=== PATIENT | female | born 1950 | race Two or more races ===

== ENCOUNTER → 2016-05-12 | Outpatient (REF) | payer BC | LOC: M SFHCLERA 19:32 | PROVIDERS: ATTEND Nurse Practitioner Family | DX: R50.9 Fever, unspecified (principal) ==

== ENCOUNTER → 2018-09-14 | Outpatient (CLI) | payer BC ==
[2018-09-14 18:00] LABS: HEMATOCRIT 42.7 % (36.0-47.0); HEMOGLOBIN 13.7 g/dl (12.0-15.5); MEAN CORPUSCULAR HGB CONC 32.1 g/dl (32.0-36.5); MEAN CORPUSCULAR VOLUME 90.5 fl (80.0-96.0); PLATELET COUNT, AUTOMATED 255 10^3/uL (150-450); RED BLOOD COUNT 4.72 10^6/uL (4.00-5.40); WHITE BLOOD COUNT 5.7 10^3/uL (4.0-10.0)
[2018-09-14 18:11] LABS: ALBUMIN 3.9 GM/DL (3.2-5.2); ALT/SGPT 38 U/L (12-78); BILIRUBIN,TOTAL 0.5 MG/DL (0.2-1.0); BLOOD UREA NITROGEN 18 MG/DL (7-18); CARBON DIOXIDE LEVEL 28 MEQ/L (21-32); CHLORIDE LEVEL 108 MEQ/L (98-107); CREATININE FOR GFR 0.92 MG/DL (0.55-1.30); GLOMERULAR FILTRATION RATE > 60.0 (>45); GLUCOSE, FASTING 97 MG/DL (70-100); SODIUM LEVEL 142 MEQ/L (136-145); TOTAL PROTEIN 7.1 GM/DL (6.4-8.2)
== END ==
LOC: M WUC 08:05
PROVIDERS: ATTEND Family Medicine
DX: E66.9 Obesity, unspecified (principal)

== ENCOUNTER 2019-11-03 12:31 | Inpatient (IN) | payer MEDICARE, BC ==
[2019-11-03] MEDS ORDERED: MORPHINE 4 MG/ML 1ML VIAL/SYRINGE (J2270) As Ordered ONE (14:47)
[2019-11-03] MEDS ORDERED: ONDANSETRON 4MG/2ML VIAL As Ordered ONE (14:47)
[2019-11-03] MEDS ORDERED: ZOSYN 4.5GM VIAL (J2543) As Ordered ONE (15:04)
[2019-11-03] MEDS ORDERED: PROHANCE 279.3MG/ML 5ML VIAL ONE ×2 (17:20→17:38)
[2019-11-03] MEDS ORDERED: PROHANCE 279.3MG/ML 15ML VIAL ONE ×2 (17:20→17:38)
[2019-11-03] MEDS ORDERED: KETOROLAC 30 MG/ML 1ML VIAL As Ordered ONE (22:18)
[2019-11-03] MEDS ORDERED: PANTOPRAZOLE 40MG VIAL (C9113 PER 1) As Ordered ONE (22:18)
[2019-11-03] MEDS ORDERED: ZOSYN 3.375GM VIAL (J2543) As Ordered ONE (23:14)
[2019-11-04] MEDS ORDERED: ZOSYN 3.375GM VIAL (J2543) As Ordered ONE ×3 (04:13→20:40)
[2019-11-04] MEDS ORDERED: KETOROLAC 30 MG/ML 1ML VIAL As Ordered ONE ×4 (04:14→20:41)
[2019-11-04] MEDS ORDERED: PANTOPRAZOLE 40MG VIAL (C9113 PER 1) As Ordered ONE ×2 (08:10→20:40)
[2019-11-04] MEDS ORDERED: SIMETHICONE 80 MG CHEW TAB As Ordered ONE ×2 (14:21→20:41)
[2019-11-05] MEDS ORDERED: KETOROLAC 30 MG/ML 1ML VIAL As Ordered ONE ×3 (02:42→15:49)
[2019-11-05] MEDS ORDERED: ZOSYN 3.375GM VIAL (J2543) As Ordered ONE ×3 (02:42→15:49)
[2019-11-05] MEDS ORDERED: PANTOPRAZOLE 40MG VIAL (C9113 PER 1) As Ordered ONE ×2 (09:38→09:40)
[2019-11-05] MEDS ORDERED: SIMETHICONE 80 MG CHEW TAB As Ordered ONE ×2 (09:40→13:01)
--- NOTE | 2019-12-18 10:56 | ECGEPIP ---
SINUS RHYTHM MARKED LEFT AXIS DEVIATION VOLTAGE CRITERIA FOR LVH ABNORMAL ECG NO OLD AVAILABLE SEE SCANNED DOWNTIME REPORT MTDD
[2020-01-03 08:45] LABS: HEMOGLOBIN 12.2 g/dl (12.0-15.5); MEAN CORPUSCULAR VOLUME 91.1 fl (80.0-96.0); PLATELET COUNT, AUTOMATED 205 10^3/uL (150-450); RED BLOOD COUNT 4.06 10^6/uL (4.00-5.40); WHITE BLOOD COUNT 9.6 10^3/uL (4.0-10.0)
[2020-01-11 15:13] LABS: HEMATOCRIT 39.6 % (36.0-47.0); HEMOGLOBIN 13.3 g/dl (12.0-15.5); MEAN CORPUSCULAR HEMOGLOBIN 29.9 pg (27.0-33.0); MEAN CORPUSCULAR HGB CONC 33.6 g/dl (32.0-36.5); PLATELET COUNT, AUTOMATED 199 10^3/uL (150-450); RED BLOOD COUNT 4.45 10^6/uL (4.00-5.40); WHITE BLOOD COUNT 14.3 10^3/uL (4.0-10.0)
[2020-01-18 20:32] LABS: ALBUMIN 2.8 GM/DL (3.2-5.2); BILIRUBIN,TOTAL 1.3 MG/DL (0.2-1.0); CALCIUM LEVEL 8.3 MG/DL (8.8-10.2); CREATININE FOR GFR 1.1 MG/DL (0.55-1.30); GLOMERULAR FILTRATION RATE 52.6 (>45); POTASSIUM SERUM 3.8 MEQ/L (3.5-5.1); TOTAL PROTEIN 6.1 GM/DL (6.4-8.2)
[2020-01-28 16:09] LABS: ALBUMIN 2.6 GM/DL (3.2-5.2); BILIRUBIN,TOTAL 0.9 MG/DL (0.2-1.0); CALCIUM LEVEL 7.9 MG/DL (8.8-10.2); CREATININE FOR GFR 1.01 MG/DL (0.55-1.30); POTASSIUM SERUM 3.7 MEQ/L (3.5-5.1)
== END 2019-11-05 16:38 | disposition home or self-care (01) | DRG 445 ==
LOC: M ED 12:31 → M MS5PR 11-04 17:40
PROVIDERS: ADMIT Surgery; ATTEND Surgery
DX: K81.0 Acute cholecystitis (principal); K86.2 Cyst of pancreas; N28.1 Cyst of kidney, acquired

== ENCOUNTER → 2019-11-03 | Outpatient (CLI) | payer BC ==
[~2019-11-03] MED LIST: PROHANCE 279.3MG/ML 15ML VIAL ONE; PROHANCE 279.3MG/ML 5ML VIAL ONE
== END ==
LOC: M RAD 10:35
PROVIDERS: ATTEND Physician Assistant
DX: K82.8 Other specified diseases of gallbladder (principal); K83.8 Other specified diseases of biliary tract; K76.0 Fatty (change of) liver, not elsewhere classified

== ENCOUNTER → 2019-11-03 | Outpatient (REF) | payer BC ==
[2019-12-01 00:51] LABS: BASO # 0.1 10^3/uL (0.0-0.2); BASO % 0.3 % (0.0-1.0); EOS % 0.2 % (0.0-3.0); HEMATOCRIT 47.7 % (36.0-47.0); HEMOGLOBIN 15.7 g/dl (12.0-15.5); LYMPH % 4.9 % (24.0-44.0); MEAN CORPUSCULAR HEMOGLOBIN 29.9 pg (27.0-33.0); MEAN CORPUSCULAR HGB CONC 32.9 g/dl (32.0-36.5); MEAN CORPUSCULAR VOLUME 90.9 fl (80.0-96.0); MONO # 1.4 10^3/uL (0.0-0.8); MONO % 6.8 % (0.0-5.0); NEUTROPHILS # 17.4 10^3/uL (1.5-8.5); NEUTROPHILS % 87.2 % (36.0-66.0); PLATELET COUNT, AUTOMATED 268 10^3/uL (150-450); RED BLOOD COUNT 5.25 10^6/uL (4.00-5.40)
[2019-12-23 11:53] LABS: ALT/SGPT 107 U/L (12-78); AMYLASE 33 U/L (25-115); BILIRUBIN,TOTAL 1.2 MG/DL (0.2-1.0); BLOOD UREA NITROGEN 16 MG/DL (7-18); CALCIUM LEVEL 9.3 MG/DL (8.8-10.2); CARBON DIOXIDE LEVEL 29 MEQ/L (21-32); CHLORIDE LEVEL 103 MEQ/L (98-107); CREATININE FOR GFR 0.89 MG/DL (0.55-1.30); GLOMERULAR FILTRATION RATE > 60.0 (>45); GLUCOSE, FASTING 175 MG/DL (70-100); LIPASE 79 U/L (73-393); POTASSIUM SERUM 4.6 MEQ/L (3.5-5.1); SODIUM LEVEL 138 MEQ/L (136-145); TOTAL PROTEIN 7.7 GM/DL (6.4-8.2)
== END ==
LOC: M WUC 11:02
PROVIDERS: ATTEND Physician Assistant
DX: R10.813 Right lower quadrant abdominal tenderness (principal); R31.9 Hematuria, unspecified

== ENCOUNTER → 2020-01-01 | Outpatient (CLI) | payer BC | LOC: M LABSMTC 09:26 | PROVIDERS: ATTEND Anesthesiology | DX: Z01.812 Encounter for preprocedural laboratory examination (principal); Z20.828 Contact with and (suspected) exposure to other viral communicable diseases | CPT/HCPCS: C9803; U0003 ==

== ENCOUNTER 2020-01-06 06:16 | Day surgery (SDC) | payer BC ==
[~2020-01-06] VITALS: Ht 162.6 cm; Wt 94.3 kg
[2020-01-06] MEDS ORDERED: propofoL 200 MG/20 ML VIAL As Ordered ONE (06:52)
[2020-01-06] MEDS ORDERED: LIDOCAINE 2% 100MG/5ML SDV (FOR ANES.) As Ordered ONE (06:52)
[2020-01-06] MEDS ORDERED: ROCURONIUM BROMIDE 50 MG/5 ML VIAL As Ordered ONE ×2 (06:52→07:56)
[2020-01-06] MEDS ORDERED: fentaNYL 100 MCG/2 ML INJECTION (J3010) As Ordered ONE (06:53)
[2020-01-06] MEDS ORDERED: KETOROLAC 60MG 2ML VIAL As Ordered ONE (06:53)
[2020-01-06] MEDS ORDERED: SUGAMMADEX SODIUM 500 MG/5 ML VIAL (BRIDION) As Ordered ONE (06:53)
[2020-01-06] MEDS ORDERED: ONDANSETRON 4MG/2ML VIAL As Ordered ONE (06:53)
[2020-01-06] MEDS ORDERED: MIDAZOLAM INJ 2MG/2ML VIAL (J2250 PER 1MG) As Ordered ONE (06:53)
[2020-01-06] MEDS ORDERED: ACETAMINOPHEN 1000MG 100ML IV BTL (OFIRMEV) (J0131 PER 10MG) As Ordered ONE (06:53)
[2020-01-06] MEDS ORDERED: dexameTHASONE 4 MG/ML 1ML VIAL (J1100 PER 1MG) As Ordered ONE (06:53)
[2020-01-06] MEDS ORDERED: LR 1,000 ML IV ONE (07:00)
[2020-01-06] MEDS ORDERED: BUPIVACAINE/EPIN 0.25% 30 ML VIAL As Ordered ONE (07:16)
[2020-01-06] MEDS ORDERED: ceFAZolin SOD 1 GM in D5W MINI-BAG PLUS 50 ML IV ONE (07:30)
[2020-01-06] MEDS ORDERED: hydrALAZINE 20MG/ML 1ML VIAL (J0360 PER 20MG) As Ordered ONE (08:24)
[2020-01-06] MEDS ORDERED: ePHEDrine SULFATE 25 MG/5 ML(5MG/ML) SYRINGE As Ordered ONE (08:46)
[2020-01-06] MEDS ORDERED: HYDROmorphone HCL 2 MG/ML 1ML VIAL (J1170) As Ordered ONE (09:14)
[2020-01-06] MEDS ORDERED: oxyCODONE 5MG TAB As Ordered ONE (10:13)
[2020-01-06] MEDS ORDERED: ONDANSETRON 4MG/2ML VIAL IV PRN (10:15)
[2020-01-06] MEDS ORDERED: LR 1,000 ML IV SCH (10:15)
[2020-01-06] MEDS ORDERED: fentaNYL 100 MCG/2 ML INJECTION (J3010) IV PRN (10:15)
[2020-01-06] MEDS ORDERED: oxyCODONE 5MG TAB PO PRN (10:15)
[2020-01-06] MEDS ORDERED: NORCO, ANEXSIA 5/325MG TABLET (HYDROcodone/ACETAMINOPHEN) PO PRN (10:30)
[2020-01-06] MEDS ORDERED: NS 1,000 ML IV SCH (10:30)
[2020-01-06 12:30] VITALS: BP 119/59
--- NOTE | 2020-02-03 15:27 | RO ---
DATE OF OPERATION: 01/06/2020 PREOPERATIVE DIAGNOSIS: History of cholecystitis. POSTOPERATIVE DIAGNOSIS: History of cholecystitis. PROCEDURE: Laparoscopic cholecystectomy. SURGEON: Valentin Guerra MD MOLD PRESSER: ANESTHESIA: General endotracheal anesthesia. EBL: Minimal. FLUIDS: Crystalloid. BRIEF PROCEDURE SUMMARY: The patient was brought to the operating room and given anesthesia. After adequate anesthesia and preoperative antibiotics were given, the patient was prepped and draped in the usual sterile fashion. Next, a supraumbilical incision was made with a skin knife. Blunt dissection was carried down to fascia. The fascia was entered with Veress needle and insufflated to 15 mm of pressure. A dilating 10 mm trocar was placed and under direct visualization epigastric and two lateral trocars were placed. The gallbladder was seen, grasped, retracted superiorly. There were numerous adhesions on the gallbladder that were taken down with hook cautery and eventually this was nicely mobilized and the gallbladder was retracted more superiorly and eventually I was able to get around the neck of the gallbladder, taking down adhesions and some thicker adhesions in this area, all across the anterior surface and then medially working toward the cystic duct and cystic duct node. Once these were seen and identified further dissection of the peritoneum on both sides was performed and then a window behind the neck of the gallbladder was created and I was able to create the critical view of safety and once I was able to do this and the cystic artery was followed onto the gallbladder itself, it was clipped proximally and transected distally with electrocautery. Even a better window behind the neck of the gallbladder was created down to where the cystic duct was well visualized. Once this was visualized nicely the cystic duct was clipped proximally and distally and transected. The gallbladder was taken from the gallbladder bed using electrocautery and placed in an Endo Catch bag, brought out through the umbilicus. The right upper quadrant was copiously irrigated until clear. All trocars were removed under direct visualization. #0 Vicryl was used to close the fascia at the umbilicus, and all incisions were closed with 4-0 Vicryl. Steri-Strips and dry sterile dressing was applied. The patient was awakened, extubated, and brought to the recovery room awake, alert, and hemodynamically stable. Sponge and needle counts were correct x2. MTDD
== END 2020-01-06 12:30 | disposition home or self-care (01) ==
LOC: M SDC 06:16
PROVIDERS: ATTEND Surgery
DX: K80.10 Calculus of gallbladder with chronic cholecystitis without obstruction (principal); Z87.891 Personal history of nicotine dependence
CPT/HCPCS: 47562; 88304; J0131; J0360; J0690; J1100; J1170; J2250; J2405; J3010

== ENCOUNTER → 2020-06-24 | Outpatient (CLI) | payer BC ==
[2020-06-24 09:59] LABS: HEMATOCRIT 42.3 % (36.0-47.0); HEMOGLOBIN 13.8 g/dl (12.0-15.5); MEAN CORPUSCULAR HEMOGLOBIN 29.4 pg (27.0-33.0); MEAN CORPUSCULAR HGB CONC 32.6 g/dl (32.0-36.5); PLATELET COUNT, AUTOMATED 238 10^3/uL (150-450); WHITE BLOOD COUNT 6.7 10^3/uL (4.0-10.0)
[2020-06-24 10:34] LABS: ALBUMIN 3.7 GM/DL (3.2-5.2); ALT/SGPT 73 U/L (12-78); BILIRUBIN,TOTAL 0.5 MG/DL (0.2-1.0); BLOOD UREA NITROGEN 21 MG/DL (7-18); CARBON DIOXIDE LEVEL 28 MEQ/L (21-32); CHLORIDE LEVEL 108 MEQ/L (98-107); CHOLESTEROL LEVEL 165 MG/DL (<200); CREATININE FOR GFR 0.73 MG/DL (0.55-1.30); FREE T3 2.9 PG/ML (2.2-4.0); FREE T4 0.83 NG/DL (0.76-1.46); GLOMERULAR FILTRATION RATE > 60.0 (>45); GLUCOSE, FASTING 100 MG/DL (70-100); HDL CHOLESTEROL 47 MG/DL (>40); LDL CHOLESTEROL 86 MG/DL (<100); NON-HDL-C 118 MG/DL; POTASSIUM SERUM 4.8 MEQ/L (3.5-5.1); SODIUM LEVEL 141 MEQ/L (136-145); TOTAL 25(OH) VITAMIN D 46.8 NG/ML (30.0-100.0); TOTAL PROTEIN 6.9 GM/DL (6.4-8.2); TRIGLYCERIDES LEVEL 158 MG/DL (<150)
== END ==
LOC: M WUC 08:40
PROVIDERS: ATTEND Registered Nurse
DX: Z13.220 Encounter for screening for lipoid disorders (principal); Z13.29 Encounter for screening for other suspected endocrine disorder; Z13.21 Encounter for screening for nutritional disorder

== ENCOUNTER → 2020-07-07 | Outpatient (CLI) | payer BC ==
--- NOTE | 2020-07-07 13:15 | REP ---
INDICATION: Z12.31 SCREENING MAMMO. COMPARISON: None. TECHNIQUE: MLO, mL and CC views bilaterally with tomosynthesis. FINDINGS: Mild scattered fibroglandular tissue is present bilaterally. There is a smoothly marginated 4 mm nodule in the upper outer quadrant of the right breast, mid 3rd. Other mass or architectural distortion is seen. No clustered microcalcifications are seen. The Volpara volumetric breast density pattern is b . IMPRESSION: BIRADS/ACR category 0, incomplete. Smoothly marginated 4 mm nodule upper-outer quadrant right breast. Recommend spot compression views and ultrasound to further evaluate. This patient's Tyrer-Cuzick lifetime breast cancer risk assessment score is 4.7%. This mammogram was interpreted with the aid of an FDA-approved computer-aided detection system. The patient states she had a clinical breast exam in May 2020. The patient letter being requested is M0. RECOMMENDATION: Recommend spot compression views and ultrasound right breast as discussed above. <Electronically signed by Rishi De La Cruz > 07/07/20 [id number]
== END ==
LOC: M WHC 11:59
PROVIDERS: ATTEND Registered Nurse
DX: Z12.31 Encounter for screening mammogram for malignant neoplasm of breast (principal); N63.11 Unspecified lump in the right breast, upper outer quadrant

== ENCOUNTER → 2020-07-16 | Outpatient (CLI) | payer BC ==
--- NOTE | 2020-07-16 16:46 | REP ---
INDICATION: ADDL VIEWS/RIGHT BREAST NODULE; RIGHT BREAST NODULE. COMPARISON: Comparison screening mammography 07/07/2020. This was BI-RADS category 0 for a well-circumscribed 4 mm nodule in the upper outer quadrant of the right breast. Diagnostic imaging was recommended. TECHNIQUE: Magnified focal spot-compression CC MLO and mL views of the right breast are obtained. A true mL tomographic sequences acquired. Targeted right breast sonography is performed. This mammogram was interpreted with the aid of an FDA-approved computer-aided detection system. FINDINGS: Scattered fibroglandular elements are again noted. Magnified focal spot-compression images demonstrate an oval-shaped 4 mm well-circumscribed nodule in the upper outer quadrant corresponding to the screening mammographic findings. No other significant mammographic abnormality. . Targeted ultrasound: Targeted sonography is performed in the right breast from 9:00 to 12:00. There are 2 hyperechoic a lobules of subcutaneous fat which may reflect lipoma. These have benign appearance and neither is felt to correspond with the mammographic opacity. These measure 0.5 and 1.2 cm in greatest diameter respectively. No cyst is seen. IMPRESSION: BIRADS/ACR category 3 probably benign right breast mammographic and sonographic findings. 4 mm nodule seen in the upper outer quadrant on the right mammographically. No sonographic correlate. This patient's Tyrer-Cuzick lifetime breast cancer risk assessment score is 4.7%. RECOMMENDATION: Repeat right breast mammography recommended in 6 months. The patient letter being requested is M 3. <Electronically signed by Cameron Villela > 07/16/20 [id number]
== END ==
LOC: M WHC 15:28
PROVIDERS: ATTEND Registered Nurse
DX: N63.11 Unspecified lump in the right breast, upper outer quadrant (principal)
CPT/HCPCS: 76642; 77065; G0279

== ENCOUNTER → 2021-02-11 | Outpatient (CLI) | payer BC ==
--- NOTE | 2021-02-11 15:55 | REP ---
INDICATION: 6 MONTH FOLLOW UP RIGHT BRST. COMPARISON: 07/07/2020, 07/16/2020. TECHNIQUE: Unilateral mammogram right breast performed with tomosynthesis. FINDINGS: There is mild fibroglandular tissue present which is unchanged. The smoothly marginated 4 mm nodule in the outer right breast remains stable. No new nodule or clustered microcalcifications are seen. Volpara breast density B. IMPRESSION: BIRADS/ACR category 3, probably benign. Stable smoothly marginated 4 mm nodule lateral right breast. Recommend follow-up bilateral mammogram July 2021. This mammogram was interpreted with the aid of an FDA-approved computer-aided detection system. Eduarer-vonnieck lifetime risk of breast cancer 4.4%. Last clinical breast exam May 2020. The patient letter being requested is M3. RECOMMENDATION: Recommend follow-up bilateral mammogram July 2021. <Electronically signed by Rishi De La Cruz > 02/11/21 [id number]
== END ==
LOC: M WHC 14:59
PROVIDERS: ATTEND Registered Nurse
DX: R92.1 Mammographic calcification found on diagnostic imaging of breast (principal); N63.10 Unspecified lump in the right breast, unspecified quadrant
CPT/HCPCS: 77065; G0279

== ENCOUNTER → 2021-08-24 | Outpatient (CLI) | payer BC | LOC: M WHC 14:46 | PROVIDERS: ATTEND Registered Nurse | DX: Z12.31 Encounter for screening mammogram for malignant neoplasm of breast (principal); Z13.820 Encounter for screening for osteoporosis; N63.10 Unspecified lump in the right breast, unspecified quadrant ==

== ENCOUNTER → 2021-08-31 | Outpatient (CLI) | payer BC ==
[2021-08-31 10:19] LABS: CALCIUM LEVEL 9.5 MG/DL (8.8-10.2); CREATININE FOR GFR 0.99 MG/DL (0.55-1.30); GLOMERULAR FILTRATION RATE 59.2 (>45); POTASSIUM SERUM 4.3 MEQ/L (3.5-5.1); URIC ACID 5.9 MG/DL (2.6-6.0)
== END ==
LOC: M WUC 08:03
PROVIDERS: ATTEND Registered Nurse
DX: I10 Essential (primary) hypertension (principal)

== ENCOUNTER → 2022-04-17 | Outpatient (CLI) | payer BC, MEDICARE ==
[2022-04-17 12:47] LABS: BASO # 0.1 10^3/uL (0.0-0.2); EOS # 0.1 10^3/uL (0.0-0.5); EOS % 2.1 % (0.0-3.0); LYMPH # 1.8 10^3/uL (1.5-5.0); MEAN CORPUSCULAR HEMOGLOBIN 29.8 pg (27.0-33.0); MEAN CORPUSCULAR HGB CONC 32.6 g/dl (32.0-36.5); MEAN CORPUSCULAR VOLUME 91.5 fl (80.0-96.0); MONO # 0.5 10^3/uL (0.0-0.8); MONO % 7.9 % (2.0-8.0); NEUTROPHILS # 4.3 10^3/uL (1.5-8.5); NEUTROPHILS % 62.7 % (36.0-66.0); PLATELET COUNT, AUTOMATED 248 10^3/uL (150-450); WHITE BLOOD COUNT 6.8 10^3/uL (4.0-10.0)
[2022-04-17 13:05] LABS: CREATININE, URINE 164.9 MG/DL; MAU/CREAT RATIO 2.4 MCG/MG (0.0-30.0)
[2022-04-17 13:08] LABS: ALBUMIN 3.7 G/DL (3.2-5.2); ALKALINE PHOSPHATASE 68 U/L (46-116); ALT/SGPT 40 U/L (7.0-40); AST/SGOT 38 U/L (<34); BILIRUBIN,TOTAL 0.7 MG/DL (0.3-1.2); BLOOD UREA NITROGEN 19 MG/DL (9-23); CALCIUM LEVEL 9.1 MG/DL (8.3-10.6); CARBON DIOXIDE LEVEL 26 MMOL/L (20-31); CHLORIDE LEVEL 105 MMOL/L (98-107); CHOLESTEROL LEVEL 148 MG/DL (<200); CHOLESTEROL RISK RATIO 2.91 (<5); CREATININE FOR GFR 0.82 MG/DL (0.55-1.30); GLOMERULAR FILTRATION RATE > 60.0 (>39); GLUCOSE, FASTING 103 MG/DL (74-106); HDL CHOLESTEROL 50.7 MG/DL (>40); LDL CHOLESTEROL 77.9 MG/DL (<100); NON-HDL-C 97 MG/DL; POTASSIUM SERUM 4.8 MMOL/L (3.5-5.1); SODIUM LEVEL 138 MMOL/L (136-145); TOTAL PROTEIN 7.1 G/DL (5.7-8.2); TRIGLYCERIDES LEVEL 97 MG/DL (<150)
[2022-04-17 13:10] LABS: THYROID STIMULATING HORMONE 1.997 uIU/ML (0.55-4.78)
[2022-04-17 13:11] LABS: FREE T4 1.18 NG/DL (0.89-1.76)
== END ==
LOC: M WUC 09:05
PROVIDERS: ATTEND Family Medicine
DX: N18.31 Chronic kidney disease, stage 3a (principal); E66.9 Obesity, unspecified

== ENCOUNTER → 2022-05-23 | Outpatient (CLI) | payer BC, MEDICARE ==
[~2022-05-23] MED LIST changes: +LISI10TA22 PO; -PROHANCE 279.3MG/ML 15ML VIAL ONE; -PROHANCE 279.3MG/ML 5ML VIAL ONE
== END ==
LOC: M LABSMTC 07:38
PROVIDERS: ATTEND Anesthesiology
DX: Z01.812 Encounter for preprocedural laboratory examination (principal); Z11.52 Encounter for screening for COVID-19

== ENCOUNTER 2022-05-25 08:27 | Day surgery (SDC) | payer BC, MEDICARE ==
[~2022-05-25] VITALS: Ht 165.1 cm; Wt 92.6 kg
[~2022-05-25 08:27] MED LIST changes: +NS 1,000 ML IV ONE
[2022-05-25] MEDS ORDERED: LIDOCAINE 2% 100MG/5ML SDV (FOR ANES.) As Ordered ONE (09:44)
[2022-05-25] MEDS ORDERED: propofoL 200 MG/20 ML VIAL As Ordered ONE ×2 (09:45→10:23)
[2022-05-25 11:00] VITALS: BP 159/74
== END 2022-05-25 11:05 | disposition home or self-care (01) ==
LOC: M OPP 08:27
PROVIDERS: ATTEND Internal Medicine Gastroenterology
DX: Z12.11 Encounter for screening for malignant neoplasm of colon (principal); K64.4 Residual hemorrhoidal skin tags; K64.8 Other hemorrhoids

== ENCOUNTER → 2023-04-26 | Outpatient (REF) | payer MEDICARE, OTHER ==
[~2023-04-26] MED LIST changes: -NS 1,000 ML IV ONE
[2023-04-26 13:26] LABS: HEMATOCRIT 41.2 % (36.0-47.0); HEMOGLOBIN 13.7 g/dl (12.0-15.5); MEAN CORPUSCULAR HEMOGLOBIN 29.7 pg (27.0-33.0); MEAN CORPUSCULAR HGB CONC 33.3 g/dl (32.0-36.5); MEAN CORPUSCULAR VOLUME 89.2 fl (80.0-96.0); PLATELET COUNT, AUTOMATED 247 10^3/uL (150-450); RED BLOOD COUNT 4.62 10^6/uL (4.00-5.40)
[2023-04-26 13:31] LABS: ALBUMIN 3.9 G/DL (3.2-5.2); ALKALINE PHOSPHATASE 59 U/L (46-116); ALT/SGPT 35 U/L (7.0-40); AST/SGOT 31 U/L (<34); BILIRUBIN,TOTAL 0.5 MG/DL (0.3-1.2); BLOOD UREA NITROGEN 27 MG/DL (9-23); CALCIUM LEVEL 9.4 MG/DL (8.3-10.6); CARBON DIOXIDE LEVEL 27 MMOL/L (20-31); CHLORIDE LEVEL 107 MMOL/L (98-107); CHOLESTEROL LEVEL 132 MG/DL (<200); CHOLESTEROL RISK RATIO 2.65 (<5); CREATININE FOR GFR 0.95 MG/DL (0.55-1.30); GLOMERULAR FILTRATION RATE > 60.0 (>39); GLUCOSE, FASTING 101 MG/DL (74-106); HDL CHOLESTEROL 49.7 MG/DL (>40); LDL CHOLESTEROL 62.1 MG/DL (<100); NON-HDL-C 82.3 MG/DL; POTASSIUM SERUM 4.1 MMOL/L (3.5-5.1); SODIUM LEVEL 137 MMOL/L (136-145); TRIGLYCERIDES LEVEL 101 MG/DL (<150)
[2023-04-26 13:32] LABS: FREE T3 3.6 PG/ML (2.3-4.2)
[2023-04-26 13:33] LABS: FREE T4 1.16 NG/DL (0.89-1.76); THYROID STIMULATING HORMONE 2.123 uIU/ML (0.55-4.78)
[2023-04-26 13:34] LABS: HEMOGLOBIN A1c 5.5 % (4.0-6.0)
== END ==
LOC: M LABWUC 12:06
PROVIDERS: ATTEND Registered Nurse
DX: E66.9 Obesity, unspecified (principal)

== ENCOUNTER → 2023-04-26 | Outpatient (CLI) | payer MEDICARE, OTHER | LOC: M WUC 10:36 | PROVIDERS: ATTEND Registered Nurse | DX: J06.9 Acute upper respiratory infection, unspecified (principal); Z78.0 Asymptomatic menopausal state; E66.9 Obesity, unspecified ==

== ENCOUNTER → 2023-05-15 | Outpatient (REF) | payer MEDICARE, OTHER | LOC: M LABWUC 13:09 | PROVIDERS: ATTEND Registered Nurse | DX: I50.20 Unspecified systolic (congestive) heart failure (principal) ==

== ENCOUNTER → 2024-03-18 | Outpatient (CLI) | payer OTHER ==
[2024-03-18 11:27] LABS: HEMATOCRIT 40.3 % (36.0-47.0); HEMOGLOBIN 13.5 g/dl (12.0-15.5); MEAN CORPUSCULAR HEMOGLOBIN 30.6 pg (27.0-33.0); MEAN CORPUSCULAR HGB CONC 33.5 g/dl (32.0-36.5); MEAN CORPUSCULAR VOLUME 91.4 fl (80.0-96.0); PLATELET COUNT, AUTOMATED 220 10^3/uL (150-450); RED BLOOD COUNT 4.41 10^6/uL (4.00-5.40); WHITE BLOOD COUNT 6.8 10^3/uL (4.0-10.0)
[2024-03-18 11:33] LABS: ALBUMIN 3.6 G/DL (3.2-5.2); ALKALINE PHOSPHATASE 68 U/L (35-104); ALT/SGPT 32 U/L (7.0-40); AST/SGOT 28 U/L (<34); BILIRUBIN,TOTAL 0.4 MG/DL (0.3-1.2); BLOOD UREA NITROGEN 30 MG/DL (9-23); CALCIUM LEVEL 9.6 MG/DL (8.3-10.6); CARBON DIOXIDE LEVEL 29 MMOL/L (20-31); CHLORIDE LEVEL 106 MMOL/L (98-107); CHOLESTEROL LEVEL 160 MG/DL (<200); CREATININE FOR GFR 0.76 MG/DL (0.55-1.30); GLOMERULAR FILTRATION RATE > 60.0 (>39); GLUCOSE, FASTING 98 MG/DL (74-106); HDL CHOLESTEROL 57.1 MG/DL (>40); LDL CHOLESTEROL 83.7 MG/DL (<100); NON-HDL-C 102.9 MG/DL; POTASSIUM SERUM 4.8 MMOL/L (3.5-5.1); SODIUM LEVEL 140 MMOL/L (136-145); TOTAL PROTEIN 7.2 G/DL (5.7-8.2); TRIGLYCERIDES LEVEL 96 MG/DL (<150)
[2024-03-18 11:36] LABS: FREE T3 3.4 PG/ML (2.3-4.2)
[2024-03-18 11:37] LABS: FREE T4 1.04 NG/DL (0.89-1.76); THYROID STIMULATING HORMONE 2.462 uIU/ML (0.55-4.78)
== END ==
LOC: M WUC 09:25
PROVIDERS: ATTEND Registered Nurse
DX: Z13.21 Encounter for screening for nutritional disorder (principal); Z13.6 Encounter for screening for cardiovascular disorders; Z13.220 Encounter for screening for lipoid disorders

== ENCOUNTER → 2024-04-16 | Outpatient (CLI) | payer OTHER | LOC: M WHC 14:53 | PROVIDERS: ATTEND Registered Nurse | DX: Z12.31 Encounter for screening mammogram for malignant neoplasm of breast (principal) ==

== ENCOUNTER → 2025-01-13 | Outpatient (CLI) | payer OTHER | LOC: M WUC 10:11 | PROVIDERS: ATTEND Physician Assistant | DX: M79.672 Pain in left foot (principal); M79.89 Other specified soft tissue disorders; M77.32 Calcaneal spur, left foot ==

== ENCOUNTER → 2025-03-24 | Outpatient (CLI) | payer OTHER ==
[2025-03-24 12:05] LABS: PLATELET COUNT, AUTOMATED 255 10^3/uL (150-450)
[2025-03-24 12:12] LABS: ALT/SGPT 22.0 U/L (7.0-40); AST/SGOT 24.0 U/L (<34); CALCIUM LEVEL 9.1 MG/DL (8.3-10.6); CARBON DIOXIDE LEVEL 27.0 MMOL/L (20-31); CHLORIDE LEVEL 105.0 MMOL/L (98-107); CHOLESTEROL LEVEL 132.0 MG/DL (<200); CHOLESTEROL RISK RATIO 2.69 (<5); CREATININE FOR GFR 0.9 MG/DL (0.55-1.30); GLOMERULAR FILTRATION RATE 67.5 (>39); LDL CHOLESTEROL 66.2 MG/DL (<100); NON-HDL-C 83.0 MG/DL; POTASSIUM SERUM 5.1 MMOL/L (3.5-5.1); SODIUM LEVEL 140.0 MMOL/L (136-145); TRIGLYCERIDES LEVEL 84.0 MG/DL (<150)
[2025-03-24 12:17] LABS: ESTIMATED AVERAGE GLUCOSE 103.0 MG/DL (60-110)
[2025-03-24 12:18] LABS: FREE T4 1.09 NG/DL (0.89-1.76)
== END ==
LOC: M WUC 08:10
PROVIDERS: ATTEND Registered Nurse
DX: Z13.21 Encounter for screening for nutritional disorder (principal); Z13.29 Encounter for screening for other suspected endocrine disorder; Z13.220 Encounter for screening for lipoid disorders; Z13.1 Encounter for screening for diabetes mellitus; Z13.6 Encounter for screening for cardiovascular disorders